=== PATIENT | female | born 1995 | race American Indian/Alaskan Native ===

== ENCOUNTER 2016-12-06 11:27 | Observation (INO) | payer MEDICAID ==
[~2016-12-06] VITALS: Ht 154.9 cm; Wt 68.0 kg
[2016-12-06 11:51] LABS: Urine RBC None Seen /hpf (0 - 4)
[2016-12-06 11:58] LABS: Basophils # (auto) 0.1 uL; Basophils % (auto) 0.9 % (0.0-2.0); CONDITION Y; Eosinophils # (auto) 0.1 uL; Hemoglobin 14.5 g/dL (12.2-16.2); Lymphocytes # (auto) 2.4 uL; Lymphocytes % (auto) 33.6 % (10.0-50.0); Mean Corpuscular Hemoglobin 31.9 pg (28.0-32.0); Mean Corpuscular Hgb Conc. 34.7 g/dL (32.0-36.0); Mean Platelet Volume 6.7 fL (7.4-10.4); Monocytes # (auto) 0.1 uL; Neutrophils # (auto) 4.5 uL; Neutrophils % (auto) 62.5 % (37.0-80.0); Platelet Count (auto) 537 10^3/uL (140-450); Red Cell Distribution Width 12.5 % (11.6-16.0); SUSPECT SEE PRINTOUT; White Blood Cell 7.3 10^3/uL (4.4-10.8)
[2016-12-06 12:17] LABS: Urine Bilirubin Negative (Negative); Urine Blood Negative /uL (Negative); Urine Color Yellow (Yellow); Urine Glucose Normal (Normal); Urine Ketone Negative (Negative); Urine Nitrite Negative (Negative); Urine Squamous Epithelial Cell FEW /hpf (<5); Urine Urobilinogen Normal (Negative); Urine pH 6.5 (5.0-8.0)
[2016-12-06 12:19] LABS: Albumin 4.3 g/dL (3.4-5.0); BUN/Creatinine Ratio 10.3; Bilirubin, Total 0.3 mg/dL (0.2-1.0); Calcium 9.1 mg/dL (8.5-10.1); Potassium 4.2 mmol/L (3.5-5.1); Total Protein 8.7 g/dL (6.4-8.2)
[2016-12-06 17:34] VITALS: BP 125/80
== END 2016-12-06 17:44 | disposition home or self-care (01) | DRG 241 ==
LOC: ER 11:27 → OVERFLOW 16:16 → ER 17:44
PROVIDERS: ADMIT Family Medicine; ATTEND Family Medicine
DX: K29.70 Gastritis, unspecified, without bleeding (principal); Z82.49 Family history of ischemic heart disease and other diseases of the circulatory system; Z83.3 Family history of diabetes mellitus
CPT/HCPCS: 36415; 74176; 80053; 81001; 84702; 85025; 99285; G0378

== ENCOUNTER 2024-01-02 13:19 | Observation (INO) | payer MEDICAID, OTHER | END 2024-01-02 15:18 | disposition home or self-care (01) | LOC: UNDOADMOB 13:19 → LDRP 13:19 → UNDODISOB 15:18 | PROVIDERS: ADMIT Obstetrics & Gynecology; ATTEND Obstetrics & Gynecology | DX: O26.893 Other specified pregnancy related conditions, third trimester (principal); R00.2 Palpitations; Z3A.19 19 weeks gestation of pregnancy | CPT/HCPCS: 59025; 81002; 94760; G0378 ==